=== PATIENT | female | born 1945 | race Two or more races ===

== ENCOUNTER 2018-05-05 08:35 | Day surgery (SDC) | payer MEDICARE, BC ==
--- NOTE | 2018-04-30 12:29 | Pre-Procedure Note/Attestation ---
Pre-Procedure Note/Attestation Complete Prior to Procedure Planned Procedure: right Procedure Narrative: 1. CATARACT EXTRACTION WITH PHACO AND PC IOL IMPLANTATION, RIGHT EYE. 2. LIMBAL RELAXING INCISION, RIGHT EYE Indications for Procedure Pre-Operative Diagnosis: 1. CATARACT , RIGHT EYE. 2. ASTIGMATISM, RIGHT EYE. Attestation I attest that I discussed the nature of the procedure; its benefits; risks and complications; and alternatives (and the risks and benefits of such alternatives ), prior to the procedure, with the patient (or the patient's legal personnel representative). I attest that, if there was a reasonable possibility of needing a blood transfusion, the patient (or the patient's legal personnel representative) was given the [place] Department of Health Services standardized written summary, pursuant to the Zachary Priyanka Blood Safety Act ([place] Health and Safety Code # 1645, as amended). I attest that I re-evaluated the patient just prior to the surgery and that there has been no change in the patient's H&P, except as documented below: Yordy Finley MD Apr 30, 2018 12:29
[2018-05-05] VITALS (8 sets, daily range): BP systolic 95–116; BP diastolic 55–74
[~2018-05-05] VITALS: Ht 165.1 cm; Wt 83.9 kg
[~2018-05-05 08:35] MED LIST: acetaZOLAMIDE 125mg tab ORAL ONE
[2018-05-05] MEDS ORDERED: Akten 3.5% 1ml Btl ONE (08:54)
[2018-05-05] MEDS ORDERED: Phenylephrine 10% Opth Soln 5ml ONE (08:55)
[2018-05-05] MEDS ORDERED: Diclofenac Sod 0.1% Op Soln ONE (08:55)
[2018-05-05] MEDS ORDERED: Vigamox Opth Soln 3ml ONE (08:55)
[2018-05-05] MEDS ORDERED: Tropicamide 1% Opth 15ml Soln ONE (09:07)
[2018-05-05] MEDS: Phenylephrine 10% Opth Soln 5ml RIGHT EYE SCH ×3 (09:08→09:28)
[2018-05-05] MEDS: Vigamox Opth Soln 3ml RIGHT EYE SCH ×3 (09:08→09:28)
[2018-05-05] MEDS: Tropicamide 1% Opth 15ml Soln RIGHT EYE SCH ×3 (09:08→09:28)
[2018-05-05] MEDS: Akten 3.5% 1ml Btl RIGHT EYE SCH ×3 (09:09→09:28)
[2018-05-05] MEDS: Diclofenac Sod 0.1% Op Soln RIGHT EYE SCH ×3 (09:09→09:28)
[2018-05-05] MEDS ORDERED: PRAVASTATIN SOD20 M1 ORAL (09:19)
[2018-05-05] MEDS ORDERED: SYNTHROID88 MCG ORAL (09:19)
[2018-05-05] MEDS ORDERED: WELLBUTRIN XL150 MG ORAL (09:19)
[2018-05-05] MEDS ORDERED: ABILIFY10 MG ORAL (09:19)
[2018-05-05] MEDS ORDERED: LAMICTAL200 MG ORAL (09:20)
[2018-05-05] MEDS ORDERED: Lidocaine 1% MPF 10mg/ml 5ml ONE (09:57)
[2018-05-05] MEDS ORDERED: EPINEPHrine 1mg/1ml Amp ONE (09:57)
[2018-05-05] MEDS ORDERED: Sodium Hyaluronate 10 mg/ml 0.85ml ONE (09:58)
[2018-05-05] MEDS ORDERED: BSS 500ml btl ONE (09:58)
[2018-05-05] MEDS ORDERED: Povidone-Iodine 5% opth solution ONE (09:58)
[2018-05-05] MEDS ORDERED: BSS 15ml BTL ONE (09:58)
[2018-05-05] MEDS ORDERED: Dexamethasone 4mg/ml vial ONE (09:58)
[2018-05-05] MEDS ORDERED: LR 1000ml ONE (10:00)
[2018-05-05] MEDS ORDERED: Propofol 200mg/20ml IV ONE (10:00)
[2018-05-05] MEDS ORDERED: NS Irrig 1000ml ONE (10:00)
[2018-05-05] MEDS ORDERED: fentaNYL 100 mcg/2 mL IV ONE (10:00)
[2018-05-05] MEDS ORDERED: Sterile Water Irrig 1000ml IRRIG ONE (10:00)
[2018-05-05] MEDS ORDERED: Midazolam 2mg/2ml Inj ONE (10:00)
[2018-05-05] MEDS ORDERED: LR 1000ml 1,000 ML IVLG SCH (10:26)
--- NOTE | 2018-05-05 10:26 | Anethesia Preoperative Eval ---
Anesthesia Pre-op PMH/ROS General Date of Evaluation: May 05, 2018 Time of Evaluation: 10:10 Anesthesiologist: Ton ASA Score: ASA 2 Mallampati Score Class I : Soft palate, uvula, fauces, pillars visible Class II: Soft palate, uvula, fauces visible Class III: Soft palate, base of uvula visible Class IV: Only hard plate visible Mallampati Classification: Class II Surgeon: Malia Diagnosis: R eye cataract Surgical Procedure: R eye cataract extraction Anesthesia History: none Family History: no anesthesia problems Allergies: Coded Allergies: No Known Allergies (Unverified , 05/05/18) Medications: see eMAR Patient NPO?: Yes Past Medical History Cardiovascular: Denies: HTN, CAD, [place], valve dz, arrhythmia, other Pulmonary: Denies: asthma, COPD, KIRSTEN, other Gastrointestinal/Genitourinary: Denies: GERD, CRI, ESRD, other Neurologic/Psychiatric: Reports: depression/anxiety; Denies: dementia, CVA, TIA, other Endocrine: Reports: hypothyroidism; Denies: DM, steroids, other HEENT: Reports: cataract (L), cataract (R); Denies: glaucoma, [place] (L), [place] (R), other Hematology/Immune: Denies: anemia, DVT, bleeding disorder, other Musculoskeletal/Integumentary: Denies: OA, RA, DJD, DDD, edema, other Other: other - overweight PMH Narrative: as above PSxH Narrative: thyroidectomy Anesthesia Pre-op Phys. Exam Physician Exam Last Vital Signs Date Time Temp Pulse Resp B/P (MAP) Pulse Ox O2 Delivery O2 Flow Rate FiO2 05/05/18 09:24 Room Air 05/05/18 09:12 98.0 62 18 116/71 95 Constitutional: NAD Neurologic: CN 2-12 intact Cardiovascular: RRR, no M/R/G Respiratory: CTA Gastrointestinal: S/NT/ND Airway Exam Mallampati Score: Class II ROM: full Teeth: intact Dentures: no upper, no lower Anesthesia Pre-op A/P Labs see chart Studies Pre-op Studies: EKG - SR Risk Assessment & Plan Assessment: ASA 2 Plan: MAC Status Change Before Surgery: No Pre-Antibiotics Drug: none Alfie Camilo MD May 05, 2018 10:26
[2018-05-05] MEDS ORDERED: fentaNYL 100 mcg/2 mL IV PRN (10:30)
[2018-05-05] MEDS ORDERED: DiphenhydrAMINE 50mg/ml Inj IVP PRN (10:30)
[2018-05-05] MEDS ORDERED: Tetracaine 0.5% Opth 4ml Soln ONE (10:52)
--- NOTE | 2018-05-05 10:53 | Immediate Post-Op Evaluation ---
Immediate Post-Op Evalulation Immediate Post-Op Evalulation Procedure: R eye cataract extraction with IOL Date of Evaluation: May 05, 2018 Time of Evaluation: 10:52 IV Fluids: 300 Blood Products: none Estimated Blood Loss: none Urinary Output: none Blood Pressure Systolic: 116 Blood Pressure Diastolic: 72 Pulse Rate: 68 Respiratory Rate: 20 O2 Sat by Pulse Oximetry: 99 Temperature (Fahrenheit): 97.6 Pain Score (1-10): 1 Nausea: No Vomiting: No Complications none Patient Status: awake, patent, none Hydration Status: adequate Alfie Camilo MD May 05, 2018 10:53
[2018-05-05] MEDS ORDERED: acetaZOLAMIDE 125mg tab ONE (11:05)
--- NOTE | 2018-05-05 11:06 | Discharge Summary ---
Discharge Summary Discharge Summary Discharge Summary DATE OF ADMISSION: 05/05/2018 DATE OF DISCHARGE: 05/05/2018 REASON FOR HOSPITALIZATION: 1- cataract, right eye 2- Astigmatism, right eye SURGERY PERFORMED: 1- Cataract extraction with phaco and PC IOL implantation OD 2- LRI, OD CONDITION IN THE HOSPITAL:The patient tolerated the surgery without complications. DISCHARGE CONDITION: The patient was stable at discharge. DISCHARGE MEDICATIONS: 1. Vigamox eye drops one drop q.i.d, OD 2. Prednisolone one drop q.i.d, OD 3. Prolenza 1 drop QD, OD POSTOPERATIVE ORDERS: The patient has to rest at home. No bending, No lifting, No watching Television tonight. POSTOPERATIVE FOLLOW UP: The patient will be followed in my office tomorrow morning at 7 o'clock. Yordy Finley MD May 05, 2018 11:06
--- NOTE | 2018-05-05 11:09 | Brief Operative Note ---
Immediate Post Operative Note Operative Note Chief Complaint: Blurry vision, difficulty driving and reading Pre-op Diagnosis: 1. CATARACT , RIGHT EYE. 2. ASTIGMATISM, RIGHT EYE. Procedure: 1- Cataract extraction with phaco and PC IOl implantation, left eye 2- Limbal relaxing incision (LRI ), right eye Post-op Diagnosis: same as pre-op Surgeon: Yordy Finley MD [employer] Mix[employer] Operator: None Additional Surgeons: None Anesthesiologist: Dr. Camilo Anesthesia: MAC Specimen: none Complications: none Condition: stable Fluids: 300ml Estimated Blood Loss: none Drains: none - Monovision PC IOl implanted in the right eye without complication Implant(s) used?: Yes Yordy Finley MD May 05, 2018 11:09
--- NOTE | 2018-05-05 11:25 | 48 Hour Post Anesthesia Eval ---
Post Anesthesia Evaluation Procedure: R eye cataract extraction with IOL Date of Evaluation: May 05, 2018 Time of Evaluation: 11:24 Blood Pressure Systolic: 107 0: 68 Pulse Rate: 67 Respiratory Rate: 18 Temperature (Fahrenheit): 97.5 O2 Sat by Pulse Oximetry: 98 Airway: patent Nausea: No Vomiting: No Pain Intensity: 1 Hydration Status: adequate Cardiopulmonary Status: stable Mental Status/LOC: patient returned to baseline Follow-up Care/Observations: n/a Post-Anesthesia Complications: none Follow-up care needed: ready to discharge Alfie Camilo MD May 05, 2018 11:25
--- NOTE | 2018-05-05 22:30 | Operative Note - Dictated ---
DATE OF OPERATION: 05/05/2018 FACILITY: [facility]. SURGEON: Yordy Finley M.D. MEDICAL SALES REPRESENTATIVE: None. ANESTHESIOLOGIST: Alfie Camilo M.D. ANESTHESIA: Monitored anesthesia care (MAC). PREOPERATIVE DIAGNOSES: 1. Cataract, right eye. 2. Astigmatism, right eye. POSTOPERATIVE DIAGNOSES: 1. Cataract, right eye. 2. Astigmatism, right eye. SURGERY PERFORMED: 1. Cataract extraction with phacoemulsification and posterior chamber intraocular lens implantation in the right eye. 2. Limbal relaxing incision (LRI) in the right eye. INDICATION FOR SURGERY: The patient is a 72-year-old lady with history of hypercholesterolemia, hypothyroidism, coronary artery disease. The patient is currently taking lamotrigine 100 mg, levothyroxine 88 mcg, oxybutynin chloride 5 mg, lovastatin 5 mg, aspirin 81 mg. The patient is not a smoker. She is not a drinker. The patient is not allergic to any medications. The patient is complaining of blurred vision in the right eye. On examination of the right eye, the cornea is clear. Anterior chamber is clean and quiet. Pupillary reflexes normal. There is no RAPD. There is 3+ nuclear sclerosis and 2+ cortical cataract in the right eye. On examination of the retina, there is some drusen of the macula. The retina is flat and optic disc is normal. To improve her vision in the right eye, the cataract has to be removed and posterior chamber intraocular lens has to be implanted and the astigmatism has to be addressed as well. INFORMED CONSENT: The nature of the surgery, risks, benefits, alternatives, and potential complications were all explained in detail to the patient. The potential complications including, but not limited to bleeding, infection, posterior capsular rupture, lens subluxation, flat anterior chamber, iris prolapse, uveitis, corneal edema, macular edema, endophthalmitis, retinal detachment, loss of vision, loss of the eye, and even were all explained in detail to the patient in her language, Farsi. The patient voiced understanding and accepted all the complications. The alternatives including accommodating lens, multifocal lens, toric lens, and conventional cataract surgery with limbal relaxing incision (LRI) for treatment of astigmatism were all explained in detail to the patient. The patient voiced understanding. The patient elected to have cataract surgery with limbal relaxing incision for treatment of astigmatism. Then, she signed the consent form, which is in the chart. DESCRIPTION OF SURGERY AND FINDINGS: Following that the patient was taken to the operation room in a stable condition. Lidocaine gel, Akten 3.5% were applied to the conjunctiva of the right eye. IV sedation was given by the anesthesiologist, Dr. Camilo. After adequate anesthesia and sedation have been achieved, the right eye was prepped and draped in a sterile fashion for intraocular surgery. Following that a speculum was placed in the right eye. Before the patient was taken to the operation room, the cornea was marked at 180 and 90 meridian. In the operating room, using a corneal marker and a marking pen, the steep meridian of the cornea was marked. Following that, using a yaya knife with a 550 micron blade, was placed in the steep meridian of the cornea to treat the astigmatism. Following that, using a Super Sharp knife, a clear corneal side port was created. 1% lidocaine without preservative (MPF) was injected into the anterior chamber gently. Following that viscoelastic agent Healon was injected into the anterior chamber. Following that, using keratome, a clear corneal and temporal keratotomy was performed. Viscoelastic agent Healon was injected into the anterior chamber. The limb was really dense. Following that, an anterior capsulotomy was performed in the fashion of capsulorrhexis beautifully under the viscoelastic agent. Following that, whole viscoelastic agent was removed from the anterior chamber. Following that, using balanced salt solution, hydrodissection and hydrodelineation was performed and the nucleus was freed. Following that, a clear fresh viscoelastic agent Healon was injected into the anterior chamber again. Following that, with the phacoemulsification machine in the fashion of horizontal chop, the nucleus was removed in toto. Following that, the cortical material was removed from the capsular bag using irrigation and aspiration unit. Following that, the capsular bag was polished. Following that, the capsular bag was filled with viscoelastic agent Healon. Following that, a +22.0 diopter ZCB00 foldable IOL with serial number [id number] was injected into the capsular bag. Using a Sinskey hook, the lens was manipulated within the proper position. Following that, whole viscoelastic agent was removed from the anterior and posterior part of the lens. The anterior chamber was filled with balanced salt solution. Following that, the wound was then hydrated with balanced salt solution. The wound was checked for leakage, there was no leakage. Vigamox eye drops were applied to the conjunctiva of the right eye. The patient tolerated the surgery without complications. At the end of the surgery, the eye was patched with a clear sterile fenestrated shield. Following that the patient was transferred to the recovery room. In the recovery room, 125 mg Diamox was given by mouth. Postoperative orders and directions were given to the patient. The patient will be discharged home upon stabilization. The patient will be followed in my office tomorrow morning. Yordy Finley M.D. DR: CHERYL JOB#: [id number] CC:
== END 2018-05-05 12:00 | disposition home or self-care (01) ==
LOC: SUR 08:35
DX: H25.11 Age-related nuclear cataract, right eye (principal); H25.011 Cortical age-related cataract, right eye; H52.201 Unspecified astigmatism, right eye; E78.00 Pure hypercholesterolemia, unspecified; E03.9 Hypothyroidism, unspecified; I25.10 Atherosclerotic heart disease of native coronary artery without angina pectoris; Z79.82 Long term (current) use of aspirin; F32.9 Major depressive disorder, single episode, unspecified; F41.9 Anxiety disorder, unspecified; F31.9 Bipolar disorder, unspecified; K21.9 Gastro-esophageal reflux disease without esophagitis; R73.03 Prediabetes
CPT/HCPCS: 65772; 66984; J0171; J1100; J2250; J2704; J3010; V2632; 94003; 94150

== ENCOUNTER 2018-05-19 06:56 | Day surgery (SDC) | payer MEDICARE, BC ==
--- NOTE | 2018-05-18 08:37 | Pre-Procedure Note/Attestation ---
Pre-Procedure Note/Attestation Complete Prior to Procedure Planned Procedure: left Procedure Narrative: 1. CATARACT EXTRACTION WITH PHACO AND PC IOL IMPLANTATION, LEFT EYE. 2. LIMBAL RELAXING INCISION, LEFT EYE Indications for Procedure Pre-Operative Diagnosis: 1. CATARACT ,LEFT EYE. 2. ASTIGMATISM, LEFT EYE. Attestation I attest that I discussed the nature of the procedure; its benefits; risks and complications; and alternatives (and the risks and benefits of such alternatives ), prior to the procedure, with the patient (or the patient's legal representative phlebotomy services). I attest that, if there was a reasonable possibility of needing a blood transfusion, the patient (or the patient's legal representative phlebotomy services) was given the [place] Department of Health Services standardized written summary, pursuant to the Zachary Priyanka Blood Safety Act ([place] Health and Safety Code # 1645, as amended). I attest that I re-evaluated the patient just prior to the surgery and that there has been no change in the patient's H&P, except as documented below: Yordy Finley MD May 18, 2018 08:37
[~2018-05-19] VITALS: Ht 165.1 cm; Wt 81.6 kg
[2018-05-19] VITALS (8 sets, daily range): BP systolic 107–156; BP diastolic 71–89
[~2018-05-19 06:56] MED LIST changes: +ABILIFY10 MG ORAL; +LAMICTAL200 MG ORAL; +PRAVASTATIN SOD20 M1 ORAL; +SYNTHROID88 MCG ORAL; +WELLBUTRIN XL150 MG ORAL
[2018-05-19] MEDS ORDERED: Lidocaine 1% MPF 10mg/ml 5ml ONE ×2 (07:09→07:14)
[2018-05-19] MEDS ORDERED: EPINEPHrine 1mg/1ml Amp ONE (07:09)
[2018-05-19] MEDS ORDERED: Sodium Hyaluronate 10 mg/ml 0.85ml ONE (07:10)
[2018-05-19] MEDS ORDERED: Povidone-Iodine 5% opth solution ONE (07:10)
[2018-05-19] MEDS ORDERED: Dexamethasone 4mg/ml vial ONE (07:10)
[2018-05-19] MEDS ORDERED: BSS 15ml BTL ONE (07:10)
[2018-05-19] MEDS ORDERED: BSS 500ml btl ONE (07:10)
[2018-05-19] MEDS ORDERED: fentaNYL 100 mcg/2 mL IV ONE (07:14)
[2018-05-19] MEDS ORDERED: Midazolam 2mg/2ml Inj ONE (07:15)
[2018-05-19] MEDS: Tropicamide 1% Opth 15ml Soln LEFT EYE SCH ×3 (07:26→07:45)
[2018-05-19] MEDS: Diclofenac Sod 0.1% Op Soln LEFT EYE SCH ×3 (07:26→07:44)
[2018-05-19] MEDS: Vigamox Opth Soln 3ml LEFT EYE SCH ×3 (07:26→07:45)
[2018-05-19] MEDS: Phenylephrine 10% Opth Soln 5ml LEFT EYE SCH ×3 (07:26→07:44)
[2018-05-19] MEDS: Akten 3.5% 1ml Btl LEFT EYE SCH ×3 (07:27→07:45)
[2018-05-19] MEDS ORDERED: LR 1000ml 1,000 ML IVLG SCH (07:49)
--- NOTE | 2018-05-19 07:49 | Anethesia Preoperative Eval ---
Anesthesia Pre-op PMH/ROS General Date of Evaluation: May 19, 2018 Anesthesiologist: Kem ASA Score: ASA 2 Mallampati Score Class I : Soft palate, uvula, fauces, pillars visible Class II: Soft palate, uvula, fauces visible Class III: Soft palate, base of uvula visible Class IV: Only hard plate visible Mallampati Classification: Class II Surgeon: Janee Diagnosis: Left cataract Surgical Procedure: Left cataract extraction with IOL Anesthesia History: none Family History: no anesthesia problems Allergies: Coded Allergies: No Known Allergies (Unverified , 05/19/18) Medications: see eMAR Patient NPO?: Yes NPO Date: May 18, 2018 NPO Time: 22:00 Past Medical History Cardiovascular: Reports: HTN, other - HLD; Denies: CAD, [place], valve dz, arrhythmia Pulmonary: Denies: asthma, COPD, KIRSTEN, other Gastrointestinal/Genitourinary: Denies: GERD, CRI, ESRD, other Neurologic/Psychiatric: Reports: depression/anxiety; Denies: dementia, CVA, TIA, other Endocrine: Reports: hypothyroidism; Denies: DM, steroids, other HEENT: Denies: cataract (L), cataract (R), glaucoma, [place] (L), [place] (R), other Hematology/Immune: Denies: anemia, DVT, bleeding disorder, other Musculoskeletal/Integumentary: Denies: OA, RA, DJD, DDD, edema, other PSxH Narrative: TRINA, thyroidectomy, breast implants Anesthesia Pre-op Phys. Exam Physician Exam Last Vital Signs Date Time Temp Pulse Resp B/P (MAP) Pulse Ox O2 Delivery O2 Flow Rate FiO2 05/19/18 07:35 98.1 63 18 107/71 98 Room Air Constitutional: NAD Cardiovascular: RRR Respiratory: CTA Airway Exam Mallampati Score: Class II MO: full ROM: full Anesthesia Pre-op A/P Labs see chart Studies Pre-op Studies: EKG - RBBB-unchanged Risk Assessment & Plan Assessment: ASA II Plan: MAC Status Change Before Surgery: No Pre-Antibiotics Drug: N/A Pricilla Lomeli MD May 19, 2018 07:49
[2018-05-19] MEDS ORDERED: DiphenhydrAMINE 50mg/ml Inj IVP PRN (08:00)
[2018-05-19] MEDS ORDERED: acetaZOLAMIDE 125mg tab ONE (09:08)
--- NOTE | 2018-05-19 09:09 | Immediate Post-Op Evaluation ---
Immediate Post-Op Evalulation Immediate Post-Op Evalulation Procedure: Left cataract extraction with IOL Date of Evaluation: May 19, 2018 Time of Evaluation: 09:11 IV Fluids: 400 Blood Products: 0 Estimated Blood Loss: 0 Urinary Output: 0 Blood Pressure Systolic: 152 Blood Pressure Diastolic: 75 Pulse Rate: 84 Respiratory Rate: 16 O2 Sat by Pulse Oximetry: 98 Temperature (Fahrenheit): 97 Pain Score (1-10): 0 Nausea: No Vomiting: No Complications 0 Patient Status: awake, reacts, patent, none Hydration Status: adequate Drug: N/A Pricilla Lomeli MD May 19, 2018 09:09
--- NOTE | 2018-05-19 09:10 | 48 Hour Post Anesthesia Eval ---
Post Anesthesia Evaluation Procedure: Left cataract extraction with IOL Date of Evaluation: May 19, 2018 Airway: patent Nausea: No Vomiting: No Pain Intensity: 0 Hydration Status: adequate Cardiopulmonary Status: at baseline Mental Status/LOC: patient returned to baseline Post-Anesthesia Complications: 0 Follow-up care needed: ready to discharge Pricilla Lomeli MD May 19, 2018 09:10
--- NOTE | 2018-05-19 09:16 | Discharge Summary ---
Discharge Summary Discharge Summary Discharge Summary DATE OF ADMISSION:05/19/2018 DATE OF DISCHARGE:05/19/2018 REASON FOR HOSPITALIZATION: 1- Cataract 2- astigmatism, lefteye SURGERY PERFORMED:1- Cataract extraction with phaco and PC IOL Implantation, in the left eye 2- LRI CONDITION IN THE HOSPITAL:The patient tolerated the surgery without complications. DISCHARGE CONDITION: The patient was stable at discharge. DISCHARGE MEDICATIONS: 1. Vigamox eye drops one drop q.i.d, OD 2. Prednisolone one drop q.i.d, OD 3. Prolensa QD one drop OD POSTOPERATIVE ORDERS: The patient has to rest at home. No bending, No lifting, No watching Television tonight. POSTOPERATIVE FOLLOW UP: The patient will be followed in my office tomorrow morning at 7 o'clock. Yordy Finley MD May 19, 2018 09:16
--- NOTE | 2018-05-19 09:20 | Brief Operative Note ---
Immediate Post Operative Note Operative Note Chief Complaint: Blurry vision left eye difficulty driving and reading Pre-op Diagnosis: 1. CATARACT ,LEFT EYE. 2. ASTIGMATISM, LEFT EYE. Procedure: 1- Cataract extraction with phaco and PC IOL implantation, left eye 2- Limbal relaxing incision 9 LRI ). left eye Post-op Diagnosis: same as pre-op Surgeon: Yordy Finley MD Image Consultant: None Additional Surgeons: None Anesthesiologist: Dr. Brownlee Anesthesia: MAC Specimen: none Complications: none Condition: stable Fluids: 300ml Estimated Blood Loss: none Drains: none Implant(s) used?: Yes - Monofocal PC IOL implanted in the left eye without compplication Yordy Finley MD May 19, 2018 09:20
--- NOTE | 2018-05-19 15:30 | Pre-op HX & Phy Repo 2 SIG ---
DATE OF ADMISSION: 05/19/2018 PRESURGICAL INTERNAL MEDICINE HISTORY AND PHYSICAL DATE OF EVALUATION: May 19, 2018. REASON FOR EVALUATION: I was asked by Dr. Yordy Finley to see this 72-year-old female, who is going for elective surgery on the left eye. The patient has nuclear sclerotic cataract, left eye. Please see Ophthalmology History and Physical by Dr. Yordy Finley. The patient was evaluated. Chart was reviewed. PAST MEDICAL HISTORY AND REVIEW OF SYSTEMS: Remarkable for hypothyroidism. No history of hypertension. Denies history of heart attack. No chest pain or palpitation. No history of stroke or seizures. No history of diabetes. Denies history of GI bleeding or heartburn. No hepatitis. No history of renal failure. No arthritis. PAST SURGICAL HISTORY: Appendectomy and total hysterectomy, thyroidectomy, right eye cataract surgery. FAMILY HISTORY: Mother of old age, 87 and father from pulmonary respiratory failure. ALLERGIES: Not known. PRESENT MEDICATIONS: Include Synthroid and Pravachol. HABITS: Denies history of tobacco use, alcohol use, or street drugs. PHYSICAL EXAMINATION: VITAL SIGNS: Blood pressure 107/71, temperature 98, pulse 63 and regular, O2 saturation 98% on room air. BMI 30 kg/m2. GENERAL: The patient is alert, well developed, well nourished female in her 70s. SKIN: Dry, clear, and warm. No rashes. No open wound. LYMPHATICS: Lymph nodes not enlarged. HEENT: Head, normocephalic and atraumatic. Ears, clear. No discharge. Eyes, full description per Dr. Yordy Finley. Mouth, clear and moist. Tongue midline. No dentures. NECK: Supple. No jugular venous distention. Carotids artery +2. Trachea midline. CHEST: No deformity or asymmetry. LUNGS: Clear to auscultation to percussion. No rales or wheezing. HEART: Sinus bradycardia. No murmur. No ectopy. ABDOMEN: Soft. No palpable mass. No rebound. EXTREMITIES: No edema. No varices. No deformity. GENITOURINARY TRACT: No dysuria. No CVA tenderness. Post hysterectomy. NERVOUS SYSTEM: No tremor. No nystagmus. No asymmetry. LABORATORY AND DIAGNOSTIC DATA: ECG, normal sinus bradycardia, right bundle-branch block. The patient's last p.o. intake 9 p.m. yesterday. Lab work pending. IMPRESSION: 1. Nuclear sclerotic cataract, left eye. 2. Hypothyroidism. 3. Sinus bradycardia, right bundle-branch block on ECG. PLAN: Cataract extraction, left eye with intraocular lens implant per Dr. Yordy Finley. CONCLUSION: The patient is a 72-year-old female. Vital signs stable. The patient has hyperlipidemia and hypothyroidism ____. The patient did not eat or drink from last night. The patient's condition optimized for surgery. Thank you very much, Dr. Finley, for privilege to participate presurgical care of this interesting patient. Julio C Welch M.D. DR: NAE JOB#: [id number] CC:
--- NOTE | 2018-05-19 19:00 | Operative Note - Dictated ---
DATE OF OPERATION: 05/19/2018 FACILITY: [facility]. SURGEON: Yordy Finley M.D. BEAN SORTER: None. ANESTHESIOLOGIST: Dr. Brownlee. ANESTHESIA: Monitored anesthesia care (MAC). PREOPERATIVE DIAGNOSES: 1. Cataract, left eye. 2. Astigmatism, left eye. POSTOPERATIVE DIAGNOSES: 1. Cataract, left eye. 2. Astigmatism, left eye. SURGERY PERFORMED: 1. Cataract extraction with phacoemulsification and posterior chamber intraocular lens implantation, left eye. 2. Limbal-relaxing incision (LRI), left eye. INDICATION FOR SURGERY: The patient is a 72-year-old lady with history of hypercholesterolemia, hypothyroidism, coronary artery disease. The patient is currently taking lamotrigine 100 mg, levothyroxine 88 mcg, , oxybutynin chloride 5 mg, lovastatin 5 mg, aspirin 81 mg. The patient is not a smoker. She is not drinker. The patient is not allergic to any medications. The patient has had cataract surgery in the right eye two weeks ago. She is happy with the result. Now she is complaining of blurred vision in the left eye. On examination of the left eye, the cornea is clear. The anterior chamber is clean and quiet but shallow. Pupillary reflexes normal. There is no RAPD. There is 3+ nuclear sclerosis and 2+ cortical cataract in the left eye. On examination of the retina, the macula is normal. Peripheral retina is flat and within normal limits. To improve her vision in the left eye, the cataract has to be removed and posterior chamber intraocular lens has to be implanted and the astigmatism has to be addressed as well. INFORMED CONSENT: The nature of the surgery, risks, benefits, alternatives, and potential complications were explained all in detail to the patient in her language, Farsi. The potential complications including, but not limited to bleeding, infection, posterior capsule rupture, lens subluxation, flat anterior chamber, iris prolapse, uveitis, corneal edema, macular edema, endophthalmitis, retinal detachment, loss of vision, and even loss of the eye were all explained in detail to the patient in her language, Farsi. The patient voiced understanding and accepted all the complications. The alternatives including accommodating lens, multifocal lens, toric lens, and conventional cataract surgery with limbal relaxing incision (LRI) for treatment of astigmatism were all explained in detail to the patient. She voiced understanding. The patient elected to have only conventional cataract surgery with limbal relaxing incision in the left eye. Then, she signed the consent form, which is in the chart. DESCRIPTION OF SURGERY AND FINDINGS: Following that, the patient was taken to the operation room in stable condition. Lidocaine gel Akten 3.5% were applied to the conjunctiva of the left eye. IV sedation was given by the anesthesiologist, Dr. Brownlee. After adequate anesthesia and sedation had been achieved, the left eye was prepped and draped in a sterile fashion for intraocular surgery. Following that, a speculum was placed in the left eye. Before the patient was taken to the operation room, the cornea was marked at 180 and 90 meridian. In the operating room, using a corneal marker and marking pen, the steep meridian of the cornea was marked. Following that, using a yaya knife with 550 micron blade, two parallel incisions were made on the steep meridian of the cornea to treat astigmatism. Following that, using a Super Sharp blade, a clear corneal side port was created. A 1% lidocaine without preservative (MPF) was injected into the anterior chamber. Following that, viscoelastic agent, Healon was injected into the anterior chamber. Following that, using a 2.8 mm keratome, a clear corneal temporal keratotomy was performed. VisionBlue was injected under the viscoelastic agent to stain the anterior capsule of the crystalline lens. Following that, clear viscoelastic agent was injected into the anterior chamber again. Under viscoelastic agent, an anterior capsulotomy was performed in the fashion of capsulorrhexis beautifully. Following that, whole viscoelastic agent was removed from anterior chamber. Following that, using balanced salt solution, hydrodissection and hydrodelineation was performed and the nucleus was freed. Following that, a clear fresh viscoelastic agent, Healon was injected into the anterior chamber to protect the endothelium of the cornea. Following that, using the phacoemulsification machine in the fashion of horizontal chop, the nucleus was removed in toto. Following that, , using the irrigation aspiration unit, the cortical material was removed from the capsular bag and the capsular bag was polished. Following that, the capsular bag was filled with viscoelastic agent, Healon. Following that, a +21.0 diopter PCB00 foldable IOL with serial number #[id number] was injected into the capsular bag. Using a Sinskey hook, it was manipulated within the proper position. Following that, whole viscoelastic agent was removed from the anterior and posterior part of the lens and anterior chamber was filled with balanced salt solution. Following that, the wound was hydrated with balanced salt solution and wound was checked for leakage. There was no leakage. Vigamox eye drops were applied to the conjunctiva of the left eye. The patient tolerated the surgery without complications. At the end of the surgery, the eye was patched with a clear sterile fenestrated shield. Following that, the patient was transferred to the recovery room. In the recovery room, 125 mg Diamox was given by mouth stat. Postoperative orders and directions were given to the patient. The patient will be discharged home upon stabilization. The patient will be followed in my office tomorrow morning. Yordy Finley M.D. DR: Justin JOB#: [id number] CC:
== END 2018-05-19 10:35 | disposition home or self-care (01) ==
LOC: SUR 06:56
DX: H25.12 Age-related nuclear cataract, left eye (principal); H25.012 Cortical age-related cataract, left eye; H52.202 Unspecified astigmatism, left eye; Z79.82 Long term (current) use of aspirin; E78.00 Pure hypercholesterolemia, unspecified; E03.9 Hypothyroidism, unspecified; I25.10 Atherosclerotic heart disease of native coronary artery without angina pectoris; Z90.89 Acquired absence of other organs; Z90.710 Acquired absence of both cervix and uterus; R00.1 Bradycardia, unspecified; I45.10 Unspecified right bundle-branch block; E89.0 Postprocedural hypothyroidism; F32.9 Major depressive disorder, single episode, unspecified; F41.9 Anxiety disorder, unspecified; I10 Essential (primary) hypertension; E78.5 Hyperlipidemia, unspecified
CPT/HCPCS: 65772; 66984; J0171; J1100; J2250; J3010; V2632; 94003; 94150